=== PATIENT | female | born 1960 | race Caucasian/White ===

== ENCOUNTER → 2016-10-13 | Day surgery (SDC) | payer MEDICARE, OTHER ==
[2016-10-11 15:23] VITALS: BMI 26.9
[~2016-10-13] MED LIST: ACETAMINOPHEN PO PRN; ACETAMINOPHEN TAB 500 MG TAB PO PRN; ALPRAZolam 0.25 MG TAB PO PRN; ALPRAZolam 0.5 MG TAB PO PRN; ASPIRIN 325 MG TAB PO STA; ATENOLOL 50 MG TAB PO SCH; ATORVASTATIN 80 MG TAB PO STA; CAFFEINE PO PRN; IOHEXOL 350 MG/ML 125ML BOTTLE INJ ONE; LIDOCAINE 2% INJ 20 MG/ML SQ ONE; MIDAZOLAM 2 MG/2 ML VIAL IV ONE; NITROGLYCERIN SL TABS 0.4 MG TAB SUBLINGUAL PRN; RX INFO: IV CONTRAST WAS GIVEN 1 EACH MISC MISCELLANE PRN; SODIUM CHLORIDE 0.9% 1,000 ML IV SCH; SODIUM CHLORIDE 0.9% 1,000 ML in EMPTY BAG 1 BAG IV ONE; buPROPion SR 150 MG TABLET.ER PO SCH
[2016-10-13 06:51] VITALS: RESP 18
[2016-10-13] MEDS: VERAPAMIL SYRINGE (5 MG/10 ML) INTRAARTER ONE ×2 (07:45→08:01)
--- NOTE | 2016-10-13 11:36 | LTR ---
October 13, 2016 MELVIN LEMUS DO RE: Krystyna Madrigal Dear Dr. Lemus: Ms. Krystyna Madrigal was experiencing chest discomfort consistent with angina. I performed a heart catheterization on her and that showed calcified left and right coronary system with mild nonobstructive coronary artery disease. Maximized medical treatment is recommended. I want to thank you for allowing us to participate in her care. Please do not hesitate to call if you have any question or concerns. Sincerely, DAKOTA RANDALL MD
--- NOTE | 2016-10-13 11:44 | CC ---
DATE OF SERVICE: 10/13/2016 PERFORMING PHYSICIAN: Carlos Sullivan, [employer]. PROCEDURE PERFORMED: 1. Selective right and left coronary angiogram. 2. Left heart catheterization. 3. Left ventriculography. INDICATION: This is a pleasant 56-year-old female patient with known hypertension, dyslipidemia, and significant history of smoking, was experiencing intermittent episodes of chest discomfort consistent with angina. I decided to pursue with a heart catheterization to rule out any severe underlying CAD. APPROACH: Right radial artery. COMPLICATIONS: None. LEVEL OF SEDATION: Moderate with sedation length 26 minutes. PROCEDURE DESCRIPTION: After obtaining an informed consent, the patient was brought to the [facility]. The right radial artery was cannulated using micropuncture technique. The micropuncture wire passed easily. Then I placed a 6 [place] sheath in the right radial artery. Subsequently, I gave the patient 2 mg of verapamil IA and 3000 units of heparin IV. After that, I did selective right and left coronary angiogram using JR4 and JL3.5 catheters. After that, I did a left heart catheterization and left ventriculography using a 5 [place] pigtail catheter. The procedure was completed without any complication. SELECTIVE CORONARY ANGIOGRAM: 1. The right coronary artery is a medium caliber vessel and it is a nondominant vessel. The right coronary artery is angiographically normal. 2. The left main is angiographically normal. It bifurcates into the left circumflex and left anterior descending artery. 3. The left circumflex is a large-caliber vessel and it is a dominant vessel. The ostial left circumflex has mild disease only and gives rise into the first OM branch, which seems to be angiographically normal. The mid left circumflex has mild disease only and gives rise into the second OM, which seems to be angiographically normal. The left circumflex distally is normal and bifurcates into PDA and PLV branches; both are angiographically normal. 4. The left anterior descending artery. The proximal LAD appeared to be calcified with mild disease only. It gives rise into a small first diagonal branch, which seems to be angiographically normal. The mid LAD appeared to have mild disease only and gives rise to the second diag, which seems to be angiographically normal and the diag is a small-caliber vessel. The distal LAD appeared to be angiographically normal. HEMODYNAMICS: The left ventricular end-diastolic pressure was 16 mmHg and no gradient was identified across the aortic valve. Left ventriculography was performed in the MANZO projection and using a power injection. The left ventricular systolic function is normal, with an ejection fraction of 55% to 60% and normal wall motion. CONCLUSION: 1. Dominant left circumflex system. 2. Calcified left coronary system. 3. Mild nonobstructive coronary artery disease. 4. Normal left ventricular systolic function. POSTPROCEDURE MANAGEMENT: 1. Maximize medical treatment. 2. Follow up with the patient.
[2016-10-13 12:37] VITALS: BP 117/66; PULSE 56; TEMP 98.2
== END ==
LOC: CATHCVL 06:24
PROVIDERS: ATTEND Internal Medicine Interventional Cardiology
DX: I25.110 Atherosclerotic heart disease of native coronary artery with unstable angina pectoris (principal); I25.84 Coronary atherosclerosis due to calcified coronary lesion; I10 Essential (primary) hypertension; F17.210 Nicotine dependence, cigarettes, uncomplicated; Z82.49 Family history of ischemic heart disease and other diseases of the circulatory system; E78.5 Hyperlipidemia, unspecified; I73.9 Peripheral vascular disease, unspecified; Z79.899 Other long term (current) drug therapy; Z88.5 Allergy status to narcotic agent; Z88.8 Allergy status to other drugs, medicaments and biological substances
CPT/HCPCS: 93458; C1894; J2001; J2250; S0106; J1644; Q9967